=== PATIENT | female | born 1965 | race Hispanic/Latino ===

== ENCOUNTER 2017-04-27 16:53 | Outpatient (CLI) | payer OTHER ==
--- NOTE | 2017-04-27 20:53 | RAD ---
CHEST TWO VIEWS 04/27/17 The heart is normal in size and the lungs are clear. No clear infiltrate or effusion was seen. The m ediastinum appears normal. The trachea is midline. IMPRESSION: No acute thoracic finding. POS: HOME
== END 2017-04-27 16:54 | disposition home or self-care (01) ==
LOC: BURRAD 16:53
DX: R05 Cough (principal)
CPT/HCPCS: 71046

== ENCOUNTER 2018-03-23 13:43 | Outpatient (CLI) | payer OTHER ==
--- NOTE | 2018-03-23 15:16 | RAD ---
LUMBAR SPINE THREE VIEWS: HISTORY: Low back pain. FINDINGS: There are five lumbar type vertebrae. Pedicles are intact. Vertebral body height is maintained. Th ere is 0.8 cm of spondylolisthesis at the lumbosacral junction, where disk space narrowing and gas di sk phenomenon are also apparent. 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 IMPRESSION: 1. Grade 1 spondylolisthesis at the lumbosacral junction with probable bilateral versus unilateral s pondylolisthesis. 2. No evidence of compression fracture. 3. Degenerative changes of the facets. POS: [facility]
== END 2018-03-23 13:44 | disposition home or self-care (01) ==
LOC: BURRAD 13:43
PROVIDERS: ATTEND Family Medicine
DX: M54.5 Low back pain (principal); M47.816 Spondylosis without myelopathy or radiculopathy, lumbar region; M43.17 Spondylolisthesis, lumbosacral region
CPT/HCPCS: 72100

== ENCOUNTER 2021-09-11 01:22 | Emergency (ER) | payer SELFPAY ==
[2021-09-11] MEDS ORDERED: Ondansetron PF 4 MG/2 ML Vial ONE (01:49)
[2021-09-11] MEDS ORDERED: Ondansetron ODT 4 MG TAB ONE (01:50)
[2021-09-11] MEDS ORDERED: Meclizine HCl 25 MG TAB ONE (02:24)
== END 2021-09-11 02:36 | disposition home or self-care (01) ==
LOC: BURERS 01:22
DX: H81.399 Other peripheral vertigo, unspecified ear (principal)
CPT/HCPCS: 36416; J2405; Q0162

== ENCOUNTER 2022-08-10 11:31 | Outpatient (CLI) | payer BC | END 2022-08-10 11:32 | disposition home or self-care (01) | LOC: BURRAD 11:31 | PROVIDERS: ATTEND Physician Assistant | DX: M79.674 Pain in right toe(s) (principal); S92.404A Nondisplaced unspecified fracture of right great toe, initial encounter for closed fracture; Z91.81 History of falling ==

== ENCOUNTER 2022-10-29 02:05 | Emergency (ER) | payer BC ==
[2022-10-29 02:49] LABS: #Basophils 0.1 thou/uL (0.0-0.2); #Eosinphils 0.2 thou/uL (0.0-0.7); #Monocytes 0.5 thou/uL (0.11-0.59); #Neutrophils 5.8 thou/uL (1.40-6.50); %Basophils 0.8 % (0.0-1.0); %Eosinophils 1.9 % (0.0-10.0); %Lymphocytes 31.8 % (21.0-51.0); %Monocytes 5.2 % (0.0-10.0); %Neutrophils 60.3 % (42.0-75.0); Hematocrit 40.4 % (36.0-47.0); Hemoglobin 13.5 g/dL (12.0-16.0); Mean Corpuscular HGB CONC 33.4 g/dL (32.0-36.0); Mean Corpuscular Hemoglobin 29.3 pg (27.0-31.0); Mean Corpuscular Volume 87.9 fl (78.0-98.0); Platelet Count 331 10x3/uL (130-400); RBC Distribution Width 12.1 % (11.5-14.5); White Blood Cell (WBC) Count 9.6 10x3/uL (4.8-10.8)
[2022-10-29 03:10] LABS: Bilirubin Negative (Negative); Blood, Urine Trace (Negative); Clarity Clear (Clear); Glucose, Urine (Dipstick) Negative (Negative); Ketone, Urine Negative (Negative); Leukocyte Trace (Negative); Nitrite Negative (Negative); Protein, Urine (Dipstick) Negative (Neg-Trace); Specific Gravity, Urine 1.015 (1.005-1.030)
[2022-10-29 03:12] LABS: ALT (SGPT) 260 U/L (8-55); AST (SGOT) 281 U/L (5-34); Albumin 4.1 g/dL (3.5-5.0); Alkaline Phosphatase 195 U/L (40-110); Anion Gap 16 mmol/L (10-20); BUN (Urea Nitrogen) 15 mg/dL (9.8-20.1); Bilirubin, Total 0.8 mg/dL (0.2-1.2); Calc. Creatinine Clearance 0 mL/min (70-130); Calcium 8.8 mg/dL (7.8-10.44); Carbon Dioxide 23 mmol/L (22-29); Chloride 108 mmol/L (98-107); Estimated GFR 95; Globulin 2.8 g/dL (2.4-3.5); Glucose 112 mg/dL (70-105); Lipase 17 U/L (8-78); Potassium 3.6 mmol/L (3.5-5.1); Protein, Total 6.9 g/dL (6.0-8.3); Sodium 143 mmol/L (136-145)
[2022-10-29 03:17] LABS: Bacteria/HPF Rare-Few HPF (None Seen); CAUTI Indications for Culture Pelvic or flank pain; RBC/HPF 0-3 HPF (0-3); Squamous Epithelial 0-3 HPF (0-3); WBC/HPF 0-3 HPF (0-3)
[2022-10-29 03:18] LABS: Urine Culture Reflex No No
== END 2022-10-29 03:34 | disposition home or self-care (01) ==
LOC: BURERS 02:05
DX: K80.20 Calculus of gallbladder without cholecystitis without obstruction (principal); Z79.899 Other long term (current) drug therapy
CPT/HCPCS: 80053; 81001; 83690; 85025; 99284

== ENCOUNTER 2023-11-11 17:01 | Emergency (ER) | payer BC ==
[2023-11-11 17:50] LABS: #Basophils 0.1 thou/uL (0.0-0.2); #Eosinphils 0.1 thou/uL (0.0-0.7); #Lymphocytes 1.7 thou/uL (1.20-3.40); #Monocytes 0.6 thou/uL (0.11-0.59); #Neutrophils 9.2 thou/uL (1.40-6.50); %Basophils 0.8 % (0.0-1.0); %Eosinophils 0.5 % (0.0-10.0); %Lymphocytes 14.4 % (21.0-51.0); %Monocytes 4.8 % (0.0-10.0); %Neutrophils 79.6 % (42.0-75.0); Hematocrit 40.2 % (36.0-47.0); Hemoglobin 13.1 g/dL (12.0-16.0); Mean Corpuscular HGB CONC 32.7 g/dL (32.0-36.0); Mean Corpuscular Hemoglobin 30.3 pg (27.0-31.0); Mean Corpuscular Volume 92.7 fl (78.0-98.0); Mean Platelet Volume 5.9 fL (7.4-10.4); Platelet Count 357 10x3/uL (130-400); RBC Distribution Width 11.8 % (11.5-14.5); Red Blood Cell (RBC) Count 4.33 mill/uL (4.20-5.40); White Blood Cell (WBC) Count 11.6 10x3/uL (4.8-10.8)
[2023-11-11 18:07] LABS: ALT (SGPT) 23 U/L (8-55); AST (SGOT) 20 U/L (5-34); Albumin 3.8 g/dL (3.5-5.0); Alkaline Phosphatase 99 U/L (40-110); Anion Gap 15 mmol/L (10-20); BUN (Urea Nitrogen) 11 mg/dL (9.8-20.1); Bilirubin, Total 0.8 mg/dL (0.2-1.2); CK (CPK) 91 U/L (29-168); Calc. Creatinine Clearance 0 mL/min (70-130); Calcium 8.6 mg/dL (7.8-10.44); Carbon Dioxide 20 mmol/L (22-29); Chloride 113 mmol/L (98-107); Estimated GFR 56; Globulin 3.1 g/dL (2.4-3.5); Glucose 102 mg/dL (70-105); Potassium 3.3 mmol/L (3.5-5.1); Protein, Total 6.9 g/dL (6.0-8.3); Sodium 145 mmol/L (136-145)
== END 2023-11-11 20:23 | disposition home or self-care (01) ==
LOC: BURERS 17:01
DX: E86.0 Dehydration (principal); F41.9 Anxiety disorder, unspecified
CPT/HCPCS: 36415; 71045; 80053; 82550; 84443; 85025; 93005; 94760; 96360